=== PATIENT | female | born 1975 | race African-American/Black ===

== ENCOUNTER 2023-08-05 13:50 | Emergency (ER) | payer MEDICAID ==
[~2023-08-05] VITALS: Ht 167.6 cm; Wt 111.1 kg
[2023-08-05 14:08] VITALS: BP 128/90; PULSE 79; RESP 18; TEMP 98.3; O2SAT 99
[2023-08-05 14:43] LABS: BILIRUBIN,URINE NEGATIVE (Neg); CLARITY,URINE CLOUDY (Clear); COLOR,URINE YELLOW (Yellow); GLUCOSE, URINE NEGATIVE (Neg); KETONES,URINE NEGATIVE (Neg); LEUKOCYTE ESTERASE ,URINE SMALL (Neg); NITRITES, URINE NEGATIVE (Neg); OCCULT BLOOD,URINE NEGATIVE (Neg); PH,URINE 5.5 (4.8-8.0); PROTEIN,URINE NEGATIVE (Neg); URINE HCG NEGATIVE (NEG)
[2023-08-05 14:47] LABS: UA COLLECTION TYPE CLN CATCH MIDSTREAM
[2023-08-05 14:58] LABS: BACTERIA,URINE 4+ /HPF (Neg); RBC,URINE 0-2 /HPF (0-2); SQUAMOUS EPITHELIAL CELL,UR MANY /LPF (FEW); WBC,URINE 0-4 /HPF (0-4)
[2023-08-05] MEDS ORDERED: NITR100C6 PO (15:19)
== END 2023-08-05 15:56 | disposition home or self-care (01) ==
LOC: ER 13:50
DX: R30.0 Dysuria (principal); Z91.013 Allergy to seafood; Z79.899 Other long term (current) drug therapy
CPT/HCPCS: 81001; 81025; 99283